=== PATIENT | female | born 1940 ===

== ENCOUNTER 2018-01-19 09:36 | Observation (INO) | payer MEDICARE, OTHER ==
--- NOTE | 2018-01-19 10:03 | C.PDOC ---
History Of Present Illness 78 year old female patient with PMHx of HTN and hypothyroidism presents to the ER with c/o constant nonradiating substernal discomfort that started at 6:30 am today. Patient reports that the discomfort feels like a "pressure" on her chest , is associated with general weakness and "heaviness" feeling. Patient denies nausea, vomiting, SOB, palpitations, cough, and fever. Patient notes her database consultant is Dr. Araiza. Time Seen by Provider: 01/19/18 09:45 Chief Complaint (Nursing): Chest Pain History Per: Patient History/Exam Limitations: no limitations Onset/Duration Of Symptoms: Hrs Current Symptoms Are (Timing): Still Present Severity: Moderate Quality: Pressure, "Pain" Modifying Factors: None Past Medical History Reviewed: Historical Data, Nursing Documentation, Vital Signs Vital Signs: Last Vital Signs Temp 98.5 F 01/21/18 15:00 Pulse 77 01/21/18 15:00 Resp 20 01/21/18 15:00 BP 116/69 01/21/18 18:23 Pulse Ox 98 01/21/18 15:00 - Medical History PMH: HTN, Hypothyroidism Family History: States: No Known Family Hx Review Of Systems Constitutional: Negative for: Fever Cardiovascular: Positive for: Chest Pain (substernal pressure). Negative for: Palpitations Respiratory: Negative for: Cough, Shortness of Breath Gastrointestinal: Negative for: Nausea, Vomiting, Abdominal Pain Neurological: Positive for: Weakness (generalized) Physical Exam - Physical Exam Appears: Well, Non-toxic, In Acute Distress (in mild discomfort ) Skin: Normal Color, Warm, Dry, No Rash Head: Normacephalic Eye(s): bilateral: Normal Inspection Oral Mucosa: Moist Neck: Normal ROM, Supple Chest: Symmetrical, No Deformity, Tenderness (reproducible tenderness on sternum ) Cardiovascular: Rhythm Regular, No Murmur Respiratory: Normal Breath Sounds, No Rales, No Rhonchi, No Wheezing Gastrointestinal/Abdominal: Normal Exam, Bowel Sounds, Soft, No Tenderness Extremity: Normal ROM, No Pedal Edema, No Calf Tenderness Neurological/Psych: Oriented x3 Gait: Steady ED Course And Treatment - Laboratory Results Result Diagrams: 01/20/18 07:53 01/20/18 07:53 ECG: Interpreted By Me, Viewed By Me ECG Rhythm: Sinus Rhythm (nml: 93 bpm), 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 widened mediastinum) - CT Scan/US CTA CHEST Other Rad Studies (CT/US): Read By Radiologist, Radiology Report Reviewed CT/US Interpretation: Accession No. : [id number]. Patient Name / ID : NASIM FLORENTINO / [id number]. Exam Date : 01/19/2018 12:23:53 ( Approved ). Study Comment : Sex / Age : F / 78Y. Creator : Mili Chilel. Dictator : Tomás Jacobsen MD. Account Solutions Analyst : Bulldozer/Loader/Compactor/Scraper : Tomás Jacobsen MD. Approver2 : Report Date : 01/19/2018 12:43:08. My Comment : . PROCEDURE: CT Angiography Chest, Abdomen and Pelvis with and without intravenous contrast. HISTORY: chest pain, r/o dissection. COMPARISON: None. TECHNIQUE : Contiguous axial images of the chest and abdomen were obtained in the phase of aortic enhancement. A noncontrast enhanced CT of the chest and abdomen was also obtained to evaluate for possible intramural thrombus. Coronal and sagittal reformats were generated. IV dose administered: 100 mL Visipaque 320. Radiation dose: Total exam DLP = mGy-cm. This CT exam was performed using one or more of the following dose reduction techniques: Automated exposure control, adjustment of the mA and/or kV according to patient size, and/ or use of iterative reconstruction technique. FINDINGS: CT ANGIOGRAPHY OF THE CHEST WITH & WITHOUT CONTRAST: AORTA (CHEST AND ABDOMEN): The thoracic and abdominal aorta are unremarkable, without aneurysm, dissection or rupture. No intramural thrombus identified in the thoracic aorta on the non-contrast ct of the chest. The celiac axis, superior mesenteric artery, inferior mesenteric artery and the renal arteries are widely patent. Please note that there are 2 left renal arteries present, a normal variant. LUNGS: No infiltrate. 5 mm subpleural nodule in the left lower lobe, series 7, image 63. No followup required. Immediately adjacent to this there is a small calcified granuloma. No other pulmonary mass is identified. MEDIASTINUM: Unremarkable. Normal caliber aorta and pulmonary arterial trunk. No aortic dissection. Normal size heart. LYMPH NODES: Unremarkable. PLEURA: Unremarkable. No pneumothorax. No pleural fluid. BONES: Unremarkable. OTHER FINDINGS: None. CT ANGIOGRAPHY OF THE ABDOMEN AND PELVIS WITH CONTRAST: LIVER: Unremarkable. No gross lesion or ductal dilatation. GALLBLADDER AND BILE DUCTS: Unremarkable. PANCREAS: Unremarkable. No gross lesion or ductal dilatation. SPLEEN: Unremarkable. ADRENALS: Unremarkable. No mass. KIDNEYS AND URETERS: Unremarkable. No hydronephrosis. No solid mass. VASCULATURE: Unremarkable. No aortic aneurysm. STOMACH AND BOWEL: Diverticulosis of the descending colon. No bowel obstruction. Scattered colonic diverticulae are seen elsewhere. APPENDIX: Not included. PERITONEUM: Unremarkable. No free fluid. No free air. LYMPH NODES: Unremarkable. No enlarged lymph nodes. Bones. No acute fracture. OTHER FINDINGS: None. IMPRESSION: No evidence of thoracic or abdominal aortic dissection. No evidence of aortic aneurysm. Minor findings as above. Progress Note: Blood work, EKG, CXR ordered and reviewed. Patient given PO tylenol for headache, PO Plavix (ASA allergy). CTA chest ordered to evauate aorta, as CXR appears to show wideneed mediastinum; neg for disssection. - Physician Consult Information Physician Contacted: Galo Araiza Outcome Of Conversation: Discussed patient with her database consultant, bobbi like patient admitted to Dr. Ribeiro with Dr. Hicks for cardiology. Dr. Ribeiro spoken with and agrees with admission to his service. Dr. Hicks consult entered. Disposition - Disposition Disposition: HOSPITALIZED Disposition Time: 14:29 Condition: STABLE - Clinical Impression Clinical Impression: Chest pain - Scribe Statement The provider has reviewed the documentation as recorded by the Oswaldo Machuca Do Provider Attestation: All medical record entries made by the Scribe were at my direction and personally dictated by me. I have reviewed the chart and agree that the record accurately reflects my personal performance of the history, physical exam, medical decision making, and the department course for this patient. I have also personally directed, reviewed, and agree with the discharge instructions and disposition. Decision To Admit - Pt Status Changed To: Hospital Disposition Of: Observation - . Bed Request Type: Telemetry Admitting Physician: Gena Ribeiro Patient Diagnosis: Chest pain
[2018-01-19 10:32] LABS: BASO # 0.1 K/uL (0.0-0.2); BASO % 0.8 % (0.0-2.0); EOS # 0.2 K/uL (0.0-0.7); EOS % 1.8 % (0.0-4.0); LYMPH # 2.1 K/uL (1.0-4.3); LYMPH % 18.7 % (20.0-40.0); MEAN CELL VOLUME 92.2 fL (81.0-99.0); MEAN CORPUSCULAR HGB CONC 34.7 g/dL (33.0-37.0); MEAN PLATELET VOLUME 8.8 fL (7.2-11.7); MONO # 1.3 K/uL (0.0-0.8); MONO % 11.2 % (0.0-10.0); NEUT # 7.6 K/uL (1.8-7.0); NEUT % 67.5 % (50.0-75.0); RBC 4.07 Mil/uL (3.80-5.20); RED CELL DISTRIBUTION WIDTH 13.8 % (11.5-14.5); WHITE BLOOD COUNT 11.3 K/uL (4.8-10.8)
[2018-01-19 10:38] LABS: INR 1.2; PROTHROMBIN TIME 13.4 SECONDS (9.7-12.2)
[2018-01-19 10:42] LABS: ALB/GLOB RATIO 1.3 (1.0-2.1); ALBUMIN 4.2 g/dL (3.5-5.0); CALCIUM 9.3 mg/dl (8.6-10.4); GFR AFRICAN-AMERICAN > 60; GFR NON-AFRICAN AMERICAN > 60
[2018-01-19 10:44] LABS: ALT/SGPT 36 U/L (9-52); AST/SGOT 33 U/L (14-36); BLOOD UREA NITROGEN 16 mg/dL (7-17)
[2018-01-19 10:55] LABS: B-TYPE NATRIURETIC PEPTIDE 219 pg/mL (0-900); CK-MB 0.46 ng/mL (0.0-3.38)
--- NOTE | 2018-01-19 11:57 | RAD ---
Date of service: 01/19/2018 PROCEDURE: CHEST RADIOGRAPH, 1 VIEW HISTORY: CP COMPARISON: Not available FINDINGS: LUNGS: Clear. PLEURA: No pneumothorax or pleural fluid seen. CARDIOVASCULAR: Normal. OSSEOUS STRUCTURES: No significant abnormalities. VISUALIZED UPPER ABDOMEN: Normal. OTHER FINDINGS: None. IMPRESSION: No active disease.
--- NOTE | 2018-01-19 13:06 | CT ---
PROCEDURE: CT Angiography Chest, Abdomen and Pelvis with and without intravenous contrast HISTORY: chest pain, r/o dissection COMPARISON: None. TECHNIQUE: Contiguous axial images of the chest and abdomen were obtained in the phase of aortic enhancement. A noncontrast enhanced CT of the chest and abdomen was also obtained to evaluate for possible intramural thrombus. Coronal and sagittal reformats were generated. IV dose administered: 100 mL Visipaque 320 Radiation dose: Total exam DLP = mGy-cm. This CT exam was performed using one or more of the following dose reduction techniques: Automated exposure control, adjustment of the mA and/or kV according to patient size, and/or use of iterative reconstruction technique. FINDINGS: CT ANGIOGRAPHY OF THE CHEST WITH & WITHOUT CONTRAST: AORTA (CHEST AND ABDOMEN): The thoracic and abdominal aorta are unremarkable, without aneurysm, dissection or rupture. No intramural thrombus identified in the thoracic aorta on the non-contrast ct of the chest. The celiac axis, superior mesenteric artery, inferior mesenteric artery and the renal arteries are widely patent. Please note that there are 2 left renal arteries present, a normal variant. LUNGS: No infiltrate. 5 mm subpleural nodule in the left lower lobe, series 7, image 63. No followup required. Immediately adjacent to this there is a small calcified granuloma. No other pulmonary mass is identified. MEDIASTINUM: Unremarkable. Normal caliber aorta and pulmonary arterial trunk. No aortic dissection. Normal size heart. LYMPH NODES: Unremarkable. PLEURA: Unremarkable. No pneumothorax. No pleural fluid. BONES: Unremarkable. OTHER FINDINGS: None. CT ANGIOGRAPHY OF THE ABDOMEN AND PELVIS WITH CONTRAST: LIVER: Unremarkable. No gross lesion or ductal dilatation. GALLBLADDER AND BILE DUCTS: Unremarkable. PANCREAS: Unremarkable. No gross lesion or ductal dilatation. SPLEEN: Unremarkable. ADRENALS: Unremarkable. No mass. KIDNEYS AND URETERS: Unremarkable. No hydronephrosis. No solid mass. VASCULATURE: Unremarkable. No aortic aneurysm. STOMACH AND BOWEL: Diverticulosis of the descending colon. No bowel obstruction. Scattered colonic diverticulae are seen elsewhere. APPENDIX: Not included PERITONEUM: Unremarkable. No free fluid. No free air. LYMPH NODES: Unremarkable. No enlarged lymph nodes. Bones No acute fracture. OTHER FINDINGS: None. IMPRESSION: No evidence of thoracic or abdominal aortic dissection. No evidence of aortic aneurysm. Minor findings as above.
[2018-01-19] MEDS: (Novolog) Insulin Aspart, Recombinant 100 u/ml 10 ml vial SC SCH (21:10)
[2018-01-19 21:42] LABS: SQUAMOUS EPITHIAL 1 /hpf (0-5); URINE BILIRUBIN NEGATIVE (NEGATIVE); URINE BLOOD NEGATIVE (NEGATIVE); URINE CLARITY Clear (Clear); URINE COLOR Straw (YELLOW); URINE GLUCOSE (UA) NORMAL (Normal); URINE LEUKOCYTE ESTERASE NEG Leu/uL (Negative); URINE PROTEIN NEGATIVE (NEGATIVE); URINE UROBILINOGEN NORMAL mg/dL (0.2-1.0)
--- NOTE | 2018-01-19 22:51 | CP.PCM.CON ---
History of Present Illness - History of Present Illness History of Present Illness: CC: Chest pain 78 year old female patient with PMHx of HTN and hypothyroidism presents to the ER with c/o constant substernal discomfort that started at 6:30 am today. Patient reports that the discomfort feels like a "pressure" on her substernum. Associated symptoms includes general weakness and "heaviness". Patient denies nausea, vomiting, SOB, palpitation, cough, and fever. Patient notes her sand screener is Dr. Araiza. Chief Complaint (Nursing): Chest Pain History Per: Patient History/Exam Limitations: no limitations Onset/Duration Of Symptoms: Hrs Current Symptoms Are (Timing): Still Present Quality: Pressure - Medical History PMH: HTN, Hypothyroidism Family History: States: No Known Family Hx Review Of Systems Constitutional: Negative for: Fever Cardiovascular: Positive for: Chest Pain (substernal pressure). Negative for: Palpitations Respiratory: Negative for: Cough, Shortness of Breath Gastrointestinal: Negative for: Nausea, Vomiting Neurological: Positive for: Weakness (general ), Other (general "heaviness") Physical Exam - Physical Exam Appears: Non-toxic, No Acute Distress Skin: Normal Color, Warm, Dry Head: Atraumatic, Normacephalic Eye(s): bilateral: Normal Inspection Neck: Normal ROM, Supple Chest: Symmetrical, No Deformity, Tenderness (reproducible tenderness on sternum ) Cardiovascular: Rhythm Regular Respiratory: Normal Breath Sounds, No Rales, No Rhonchi, No Wheezing Gastrointestinal/Abdominal: Soft, No Tenderness Back: No CVA Tenderness Extremity: Normal ROM (x4) Neurological/Psych: Oriented x3, Normal Speech Gait: Steady Past Patient History - Past Social History Smoking Status: Never Smoked - CARDIAC Hx Hypertension: Yes - ENDOCRINE/METABOLIC Hx Hypothyroidism: Yes - PSYCHIATRIC Hx Substance Use: No - SURGICAL HISTORY Hx Appendectomy: Yes Hx Cholecystectomy: Yes Hx Herniorrhaphy: Yes - ANESTHESIA Hx Anesthesia: Yes Hx Anesthesia Reactions: No Meds Allergies/Adverse Reactions: Allergies Allergy/AdvReac Type Severity Reaction Status Date / Time aspirin Allergy Verified 01/19/18 10:06 - Medications Medications: Current Medications Clopidogrel Bisulfate (Plavix) 75 mg PO DAILY [facility] Enoxaparin Sodium (Lovenox) 40 mg SC DAILY [facility] Hydrochlorothiazide (Microzide) 12.5 mg PO DAILY [facility] Insulin Aspart (Novolog) 0 unit SC ACHS [facility] PRN Reason: Protocol Last Admin: 01/19/18 21:10 Dose: Not Given Levothyroxine Sodium (Synthroid) 50 mcg PO DAILY@0630 [facility] Losartan Potassium (Cozaar) 50 mg PO DAILY [facility] Metoprolol Tartrate (Lopressor) 25 mg PO BID [facility] Last Admin: 01/19/18 19:11 Dose: 25 mg Rosuvastatin Calcium (Crestor) 20 mg PO HS [facility] Last Admin: 01/19/18 21:15 Dose: 20 mg Results - Vital Signs Recent Vital Signs: Last Vital Signs Temp 98.2 F 01/19/18 16:46 Pulse 82 01/19/18 16:46 Resp 20 01/19/18 16:46 BP 130/80 01/19/18 19:11 Pulse Ox 96 01/19/18 16:46 - Labs Result Diagrams: 01/19/18 10:21 01/19/18 10:21 Labs: Laboratory Results - last 24 hr 01/19/18 01/19/18 01/19/18 10:17 10:21 10:21 WBC 11.3 H RBC 4.07 Hgb 13.0 Hct 37.5 MCV 92.2 MCH 32.0 H MCHC 34.7 RDW 13.8 Plt Count 244 MPV 8.8 Neut % (Auto) 67.5 Lymph % (Auto) 18.7 L [place] % (Auto) 11.2 H Eos % (Auto) 1.8 Baso % (Auto) 0.8 Neut # (Auto) 7.6 H Lymph # (Auto) 2.1 [place] # (Auto) 1.3 H Eos # (Auto) 0.2 Baso # (Auto) 0.1 PT 13.4 H INR 1.2 APTT 29 Sodium Potassium Chloride Carbon Dioxide Anion Gap BUN Creatinine Est GFR ( Amer) Est GFR (Non-Af Amer) POC Glucose (mg/dL) 136 H Random Glucose Calcium Total Bilirubin AST ALT Alkaline Phosphatase Total Creatine Kinase CK-MB (Mass) Troponin I NT-Pro-B Natriuret Pep Total Protein Albumin Globulin Albumin/Globulin Ratio TSH 3rd Generation Urine Color Urine Clarity Urine pH Ur Specific [place] Urine Protein Urine Glucose (UA) Urine Ketones Urine Blood Urine Nitrate Urine Bilirubin Urine Urobilinogen Ur Leukocyte Esterase Urine WBC (Auto) Urine RBC (Auto) Ur Squamous Epith Cells 01/19/18 01/19/1801/19/18 10:21 17:18 19:54 WBC RBC Hgb Hct MCV MCH MCHC RDW Plt Count MPV Neut % (Auto) Lymph % (Auto) [place] % (Auto) Eos % (Auto) Baso % (Auto) Neut # (Auto) Lymph # (Auto) [place] # (Auto) Eos # (Auto) Baso # (Auto) PT INR APTT Sodium 140 Potassium 4.0 Chloride 100 Carbon Dioxide 28 Anion Gap 16 BUN 16 Creatinine 0.9 Est GFR ( Amer) > 60 Est GFR (Non-Af Amer) > 60 POC Glucose (mg/dL) 114 H Random Glucose 124 H Calcium 9.3 Total Bilirubin 1.0 AST 33 ALT 36 Alkaline Phosphatase 66 Total Creatine Kinase 49 CK-MB (Mass) 0.46 Troponin I < 0.0120 < 0.0120 NT-Pro-B Natriuret Pep 219 Total Protein 7.5 Albumin 4.2 Globulin 3.3 Albumin/Globulin Ratio 1.3 TSH 3rd Generation 4.25 Urine Color Urine Clarity Urine pH Ur Specific [place] Urine Protein Urine Glucose (UA) Urine Ketones Urine Blood Urine Nitrate Urine Bilirubin Urine Urobilinogen Ur Leukocyte Esterase Urine WBC (Auto) Urine RBC (Auto) Ur Squamous Epith Cells 01/19/18 01/19/18 21:00 21:32 WBC RBC Hgb Hct MCV MCH MCHC RDW Plt Count MPV Neut % (Auto) Lymph % (Auto) [place] % (Auto) Eos % (Auto) Baso % (Auto) Neut # (Auto) Lymph # (Auto) [place] # (Auto) Eos # (Auto) Baso # (Auto) PT INR APTT Sodium Potassium Chloride Carbon Dioxide Anion Gap BUN Creatinine Est GFR ( Amer) Est GFR (Non-Af Amer) POC Glucose (mg/dL) 132 H Random Glucose Calcium Total Bilirubin AST ALT Alkaline Phosphatase Total Creatine Kinase CK-MB (Mass) Troponin I NT-Pro-B Natriuret Pep Total Protein Albumin Globulin Albumin/Globulin Ratio TSH 3rd Generation Urine Color Straw Urine Clarity Clear Urine pH 6.0 Ur Specific [place] 1.017 Urine Protein Negative Urine Glucose (UA) Normal Urine Ketones Negative Urine Blood Negative Urine Nitrate Negative Urine Bilirubin Negative Urine Urobilinogen Normal Ur Leukocyte Esterase Neg Urine WBC (Auto) 1 Urine RBC (Auto) < 1 Ur Squamous Epith Cells 1 Assessment & Plan - Assessment and Plan (Free Text) Assessment: 78 F with Hx fo HTN, Hyperlipidemia presents with chest pain Stress test in am
[2018-01-20] MEDS: Levothyroxine 50 MCG TAB PO SCH (05:34)
[2018-01-20] MEDS: (Novolog) Insulin Aspart, Recombinant 100 u/ml 10 ml vial SC SCH ×4 (07:27→22:04)
[2018-01-20] MEDS ORDERED: Caffeine Citrated **INJ** 20 MG/ML IV ONE (07:32)
[2018-01-20 08:04] LABS: BASO # 0.1 K/uL (0.0-0.2); EOS # 0.5 K/uL (0.0-0.7); EOS % 4.2 % (0.0-4.0); HEMOGLOBIN 13.5 g/dL (11.0-16.0); LYMPH # 2.3 K/uL (1.0-4.3); MEAN CELL VOLUME 91.4 fL (81.0-99.0); MEAN CORPUSCULAR HEMOGLOBIN 32.2 pg (27.0-31.0); MEAN CORPUSCULAR HGB CONC 35.2 g/dL (33.0-37.0); MEAN PLATELET VOLUME 8.7 fL (7.2-11.7); MONO # 1.6 K/uL (0.0-0.8); MONO % 14.6 % (0.0-10.0); NEUT # 6.4 K/uL (1.8-7.0); NEUT % 59.2 % (50.0-75.0); NRBC % 0.2 % (0.0-2.0); RBC 4.2 Mil/uL (3.80-5.20); WHITE BLOOD COUNT 10.8 K/uL (4.8-10.8)
[2018-01-20 08:18] LABS: ALB/GLOB RATIO 1.3 (1.0-2.1); ALBUMIN 4.4 g/dL (3.5-5.0); ALT/SGPT 28 U/L (9-52); AST/SGOT 30 U/L (14-36); BLOOD UREA NITROGEN 14 mg/dL (7-17); CALCIUM 9.7 mg/dl (8.6-10.4); GFR AFRICAN-AMERICAN > 60; GFR NON-AFRICAN AMERICAN > 60
[2018-01-20] MEDS ORDERED: Home Med 1 UNIT (Losartan/Hydrochlorothiazide [Losartan-Hctz 50-12.5 Mg Tab] 1 EACH) PO SCH (10:00)
[2018-01-20] MEDS: Enoxaparin 40 mg Syringe SC SCH (13:50)
--- NOTE | 2018-01-20 14:50 | CP.PCM.HP ---
Past Patient History - Past Social History Smoking Status: Never Smoked - CARDIAC Hx Hypertension: Yes - ENDOCRINE/METABOLIC Hx Hypothyroidism: Yes - PSYCHIATRIC Hx Substance Use: No - SURGICAL HISTORY Hx Appendectomy: Yes Hx Cholecystectomy: Yes Hx Herniorrhaphy: Yes - ANESTHESIA Hx Anesthesia: Yes Hx Anesthesia Reactions: No Meds Allergies/Adverse Reactions: Allergies Allergy/AdvReac Type Severity Reaction Status Date / Time aspirin Allergy Verified 01/19/18 10:06 Results - Vital Signs Recent Vital Signs: Last Vital Signs Temp 98 F 01/20/18 12:46 Pulse 84 01/20/18 12:46 Resp 18 01/20/18 12:46 BP 115/75 01/20/18 12:46 Pulse Ox 96 01/20/18 12:46 - Labs Result Diagrams: 01/20/18 07:53 01/20/18 07:53 Labs: Laboratory Results - last 24 hr 01/19/18 01/19/18 01/19/18 17:18 19:54 21:00 WBC RBC Hgb Hct MCV MCH MCHC RDW Plt Count MPV Neut % (Auto) Lymph % (Auto) [place] % (Auto) Eos % (Auto) Baso % (Auto) Neut # (Auto) Lymph # (Auto) [place] # (Auto) Eos # (Auto) Baso # (Auto) Sodium Potassium Chloride Carbon Dioxide Anion Gap BUN Creatinine Est GFR ( Amer) Est GFR (Non-Af Amer) POC Glucose (mg/dL) 114 H 132 H Random Glucose Calcium Total Bilirubin AST ALT Alkaline Phosphatase Troponin I < 0.0120 Total Protein Albumin Globulin Albumin/Globulin Ratio Urine Color Urine Clarity Urine pH Ur Specific [place] Urine Protein Urine Glucose (UA) Urine Ketones Urine Blood Urine Nitrate Urine Bilirubin Urine Urobilinogen Ur Leukocyte Esterase Urine WBC (Auto) Urine RBC (Auto) Ur Squamous Epith Cells 01/19/18 01/19/18 01/20/18 21:32 23:49 06:30 WBC RBC Hgb Hct MCV MCH MCHC RDW Plt Count MPV Neut % (Auto) Lymph % (Auto) [place] % (Auto) Eos % (Auto) Baso % (Auto) Neut # (Auto) Lymph # (Auto) [place] # (Auto) Eos # (Auto) Baso # (Auto) Sodium Potassium Chloride Carbon Dioxide Anion Gap BUN Creatinine Est GFR ( Amer) Est GFR (Non-Af Amer) POC Glucose (mg/dL) 138 H Random Glucose Calcium Total Bilirubin AST ALT Alkaline Phosphatase Troponin I < 0.0120 Total Protein Albumin Globulin Albumin/Globulin Ratio Urine Color Straw Urine Clarity Clear Urine pH 6.0 Ur Specific [place] 1.017 Urine Protein Negative Urine Glucose (UA) Normal Urine Ketones Negative Urine Blood Negative Urine Nitrate Negative Urine Bilirubin Negative Urine Urobilinogen Normal Ur Leukocyte Esterase Neg Urine WBC (Auto) 1 Urine RBC (Auto) < 1 Ur Squamous Epith Cells 1 01/20/18 01/20/18 01/20/18 07:53 07:53 12:28 WBC 10.8 RBC 4.20 Hgb 13.5 Hct 38.4 MCV 91.4 MCH 32.2 H MCHC 35.2 RDW 14.0 Plt Count 250 MPV 8.7 Neut % (Auto) 59.2 Lymph % (Auto) 21.0 [place] % (Auto) 14.6 H Eos % (Auto) 4.2 H Baso % (Auto) 1.0 Neut # (Auto) 6.4 Lymph # (Auto) 2.3 [place] # (Auto) 1.6 H Eos # (Auto) 0.5 Baso # (Auto) 0.1 Sodium 138 Potassium 3.8 Chloride 97 L Carbon Dioxide 28 Anion Gap 17 BUN 14 Creatinine 0.9 Est GFR ( Amer) > 60 Est GFR (Non-Af Amer) > 60 POC Glucose (mg/dL) 171 H Random Glucose 140 H Calcium 9.7 Total Bilirubin 1.1 AST 30 ALT 28 Alkaline Phosphatase 72 Troponin I Total Protein 7.7 Albumin 4.4 Globulin 3.3 Albumin/Globulin Ratio 1.3 Urine Color Urine Clarity Urine pH Ur Specific [place] Urine Protein Urine Glucose (UA) Urine Ketones Urine Blood Urine Nitrate Urine Bilirubin Urine Urobilinogen Ur Leukocyte Esterase Urine WBC (Auto) Urine RBC (Auto) Ur Squamous Epith Cells
--- NOTE | 2018-01-20 23:48 | CP.PCM.PN ---
Subjective - Date & Time of Evaluation Date of Evaluation: 01/20/18 Time of Evaluation: 13:00 - Subjective Subjective: Patient seen and evaluated Non cardiac chest pain Normal stress test and EF Medical management F/U Dr. Araiza as out patient for Cardiology Objective - Vital Signs/Intake and Output Vital Signs (last 24 hours): Temp Pulse Resp BP Pulse Ox 98.1 F 92 H 20 114/73 96 01/20/18 15:00 01/20/18 17:49 01/20/18 17:49 01/20/18 17:53 01/20/18 17:49 - Medications Medications: Current Medications Clopidogrel Bisulfate (Plavix) 75 mg PO DAILY [facility] Last Admin: 01/20/18 13:38 Dose: Not Given Enoxaparin Sodium (Lovenox) 40 mg SC DAILY [facility] Last Admin: 01/20/18 13:50 Dose: 40 mg Hydrochlorothiazide (Microzide) 12.5 mg PO DAILY [facility] Last Admin: 01/20/18 13:38 Dose: Not Given Insulin Aspart (Novolog) 0 unit SC [facility] PRN Reason: Protocol Last Admin: 01/20/18 22:04 Dose: Not Given Levothyroxine Sodium (Synthroid) 50 mcg PO DAILY@0630 [facility] Last Admin: 01/20/18 05:34 Dose: 50 mcg Losartan Potassium (Cozaar) 50 mg PO DAILY [facility] Last Admin: 01/20/18 13:37 Dose: Not Given Metoprolol Tartrate (Lopressor) 25 mg PO BID [facility] Last Admin: 01/20/18 17:53 Dose: 25 mg Rosuvastatin Calcium (Crestor) 20 mg PO HS [facility] Last Admin: 01/20/18 22:04 Dose: 20 mg - Labs Labs: 01/20/18 07:53 01/20/18 07:53 PT 13.4 SECONDS (9.7-12.2) H 01/19/18 10:21 INR 1.2 01/19/18 10:21 APTT 29 SECONDS (21-34) 01/19/18 10:21
[2018-01-21] MEDS: Levothyroxine 50 MCG TAB PO SCH (05:41)
[2018-01-21] MEDS: (Novolog) Insulin Aspart, Recombinant 100 u/ml 10 ml vial SC SCH ×3 (08:03→17:05)
[2018-01-21 08:41] VITALS: RESP 20
[2018-01-21] MEDS: Enoxaparin 40 mg Syringe SC SCH (09:12)
[2018-01-21 16:44] VITALS: PULSE 77; TEMP 98.5; O2SAT 98
--- NOTE | 2018-01-21 17:10 | CP.PCM.PN ---
Subjective - Date & Time of Evaluation Date of Evaluation: 01/21/18 Time of Evaluation: 17:10 Objective - Vital Signs/Intake and Output Vital Signs (last 24 hours): Temp Pulse Resp BP Pulse Ox 98.5 F 77 20 134/75 98 01/21/18 15:00 01/21/18 15:00 01/21/18 15:00 01/21/18 15:00 01/21/18 15:00 Intake and Output: 01/21/18 01/21/18 06:59 18:59 Intake Total 500 240 Balance 500 240 - Medications Medications: Current Medications Clopidogrel Bisulfate (Plavix) 75 mg PO DAILY [facility] Last Admin: 01/21/18 09:12 Dose: 75 mg Enoxaparin Sodium (Lovenox) 40 mg SC DAILY [facility] Last Admin: 01/21/18 09:12 Dose: 40 mg Hydrochlorothiazide (Microzide) 12.5 mg PO DAILY [facility] Last Admin: 01/21/18 09:13 Dose: 12.5 mg Insulin Aspart (Novolog) 0 unit SC [facility] PRN Reason: Protocol Last Admin: 01/21/18 17:05 Dose: Not Given Levothyroxine Sodium (Synthroid) 50 mcg PO DAILY@0630 [facility] Last Admin: 01/21/18 05:41 Dose: 50 mcg Losartan Potassium (Cozaar) 50 mg PO DAILY [facility] Last Admin: 01/21/18 09:12 Dose: 50 mg Metoprolol Tartrate (Lopressor) 25 mg PO BID [facility] Last Admin: 01/21/18 09:12 Dose: 25 mg Rosuvastatin Calcium (Crestor) 20 mg PO HS [facility] Last Admin: 01/20/18 22:04 Dose: 20 mg - Labs Labs: 01/20/18 07:53 01/20/18 07:53 PT 13.4 SECONDS (9.7-12.2) H 01/19/18 10:21 INR 1.2 01/19/18 10:21 APTT 29 SECONDS (21-34) 01/19/18 10:21
--- NOTE | 2018-01-21 17:51 | CARD ---
APPROVED REPORT Date of service: 01/20/2018 EXAM: Two-dimensional and M-mode echocardiogram with Doppler and color Doppler. Other Information Quality : GoodRhythm : INDICATION Chest Pain RISK FACTORS Hypertension 2D DIMENSIONS IVSd1.2 (0.7-1.1cm)LVDd4.0 (3.9-5.9cm) PWd0.9 (0.7-1.1cm)LVDs2.7 (2.5-4.0cm) FS (%) 33.6 %LVEF (%)63.0 (>50%) M-Mode DIMENSIONS Left Atrium (MM)3.44 (2.5-4.0cm)IVSd1.09 (0.7-1.1cm) Aortic Root3.44 (2.2-3.7cm)LVDd6.27 (4.0-5.6cm) Aortic Cusp Exc.2.31 (1.5-2.0cm)PWd0.89 (0.7-1.1cm) FS (%) 30 %LVDs4.42 (2.0-3.8cm) LVEF (%)55 (>50%) Mitral Valve MV E Igbhqfxh63.9cm/sMV A Nrvnpbbf72.7cm/sE/A ratio0.6 TDI E/Lateral E'0.0E/Medial E'0.0 Tricuspid Valve TR Peak Hiqqubeb299ey/sTR Peak Gr.[id number] LEFT VENTRICLE The left ventricle is normal size. There is normal left ventricular wall thickness. The left ventricular function is normal. The left ventricular ejection fraction is within the normal range. There is normal LV segmental wall motion. Transmitral Doppler flow pattern is abnormal. ATRIA The left atrium size is normal. The right atrium size is normal. AORTIC VALVE The aortic valve is normal in structure. MITRAL VALVE Mitral regurgitation is trace. TRICUSPID VALVE There is mild tricuspid regurgitation. <Conclusion> Normal LV systolic function. Diastolic dysfunction. Normal chamber size. Trace MR. Mild TR.
[2018-01-21 18:23] VITALS: BP 116/69
--- NOTE | 2018-01-22 07:30 | CP.PCM.PN ---
Subjective - Date & Time of Evaluation Date of Evaluation: 01/21/18 Time of Evaluation: 17:20 - Subjective Subjective: Patient seen and evaluated Denies chest pain and dyspne - Medical History PMH: HTN, Hypothyroidism Family History: States: No Known Family Hx Review Of Systems Constitutional: Negative for: Fever Cardiovascular: Positive for: Chest Pain (substernal pressure). Negative for: Palpitations Respiratory: Negative for: Cough, Shortness of Breath Gastrointestinal: Negative for: Nausea, Vomiting Neurological: Positive for: Weakness (general ), Other (general "heaviness") Physical Exam - Physical Exam Appears: Non-toxic, No Acute Distress Skin: Normal Color, Warm, Dry Head: Atraumatic, Normacephalic Eye(s): bilateral: Normal Inspection Neck: Normal ROM, Supple Chest: Symmetrical, No Deformity, Tenderness (reproducible tenderness on sternum ) Cardiovascular: Rhythm Regular Respiratory: Normal Breath Sounds, No Rales, No Rhonchi, No Wheezing Gastrointestinal/Abdominal: Soft, No Tenderness Back: No CVA Tenderness Extremity: Normal ROM (x4) Neurological/Psych: Oriented x3, Normal Speech Gait: Steady Objective - Vital Signs/Intake and Output Vital Signs (last 24 hours): Temp Pulse Resp BP Pulse Ox 98.5 F 77 20 116/69 98 01/21/18 15:00 01/21/18 15:00 01/21/18 15:00 01/21/18 18:23 01/21/18 15:00 - Labs Labs: 01/20/18 07:53 01/20/18 07:53 PT 13.4 SECONDS (9.7-12.2) H 01/19/18 10:21 INR 1.2 01/19/18 10:21 APTT 29 SECONDS (21-34) 01/19/18 10:21 Assessment and Plan - Assessment and Plan (Free Text) Assessment: Non cardiac chest pain Stress test normal HTN controlled F/U Dr. Araiza as out patient
[2018-01-22] MEDS ORDERED: Home Med 1 UNIT (Linagliptin [Tradjenta] 5 MG) PO SCH (10:00)
--- NOTE | 2018-01-24 20:59 | CARD ---
APPROVED REPORT EKG Measurement Heart [id number] <Conclusion> Normal sinus rhythm Left bundle branch block Abnormal ECG
--- NOTE | 2018-01-24 21:04 | CARD ---
APPROVED REPORT EKG Measurement Heart [id number] [place] [id number] <Conclusion> Normal sinus rhythm Left axis deviation Left bundle branch block Abnormal ECG
--- NOTE | 2018-01-24 21:19 | CARD ---
APPROVED REPORT EKG Measurement Heart [id number] [place] [id number] <Conclusion> Normal sinus rhythm Left bundle branch block Abnormal ECG
== END 2018-01-21 20:00 | disposition home or self-care (01) ==
LOC: C.ER 09:36 → C.9E 14:29 → C.6T 16:06
PROVIDERS: ADMIT Internal Medicine Critical Care Medicine; ATTEND Internal Medicine Critical Care Medicine
DX: R07.9 Chest pain, unspecified (principal); I10 Essential (primary) hypertension; E03.9 Hypothyroidism, unspecified; E78.5 Hyperlipidemia, unspecified; Z90.49 Acquired absence of other specified parts of digestive tract
CPT/HCPCS: 36415; 71045; 71275; 74175; 78452; 80053; 81001; 82550; 82553; 82948; 83880; 84443; 84484; 85025; 85610; 85730; 93005; 93017; 93306; 99284; A9502; G0378; J1650; J2785